=== PATIENT | female | born 1955 | race Caucasian/White ===

== ENCOUNTER → 2022-08-17 | Outpatient (CLI) | payer MEDICARE, OTHER ==
--- NOTE | 2022-08-17 16:19 | DIREP ---
PROCEDURE:XRAY SPINE LUMBAR 2-3 VWS COMPARISON:None. INDICATIONS:M54.41 LUMBAGO WITH SCIATICA TECHNIQUE:AP, lateral, and coned down lateral views of the lumbar spine are provided. FINDINGS: ALIGNMENT:Normal. VERTEBRAE:Normal vertebral height. Mild anterior lateral osteophyte formation. Mild diffuse facet arthrosis. DISK SPACES:Normal. SPONDYLOLISTHESIS:None. SACROILIAC JOINTS:Mild osteophytosis. OTHER:Normal. CONCLUSION:Mild degenerative changes without acute bony abnormality. Dictated by: Jose Floyd M.D. on 08/17/2022 at 04:15 PM
== END | disposition home or self-care (01) ==
LOC: RAD 14:36
PROVIDERS: ATTEND Nurse Practitioner
DX: M47.816 Spondylosis without myelopathy or radiculopathy, lumbar region (principal); M25.78 Osteophyte, vertebrae
CPT/HCPCS: 72100

== ENCOUNTER → 2024-02-07 | Outpatient (CLI) | payer MEDICARE, OTHER | END | disposition home or self-care (01) | LOC: RAD 12:58 | PROVIDERS: ATTEND Nurse Practitioner | DX: K44.9 Diaphragmatic hernia without obstruction or gangrene (principal); M25.532 Pain in left wrist; R07.89 Other chest pain | CPT/HCPCS: 71100-LT; 73110-LT ==